=== PATIENT | male | born 1990 | race Caucasian/White ===

== ENCOUNTER → 2017-04-06 | Outpatient (CLI) | payer MEDICAID ==
[~2017-04-06] MED LIST: AUGMENTIN 500 M1 TAB PO; AUGMENTIN 500500 M1 PO; AUGMENTIN 875 M1 TA1 PO; AUGMENTIN 875 M1 TAB PO; AUGMENTIN 875875 MG PO; BACTRIM DS 8001 TA1 PO; BUSPAR5 MG PO; DIFLUCAN100 MG PO; FLEXERIL10 MG PO; FLEXERIL5 MG PO; HYDROCODONE BIT1 T11 PO; IBU-6600 MG PO; MIRAPEX; MOTRIN100 M1 PO; MOTRIN400 MG PO; MOTRIN800 MG PO; MYCOLOG CREAM 115 GM T; NAPROSYN500 MG PO; NICODERM7 MG/24 HR TD; NKHM; NORCO 325 MG-51 TAB PO; PERCOCET 325 MG1 TA5 PO; ROBITUSSIN; ROCEPHIN1 GM IV; TRAMADOL HCL50 MG PO; VIBRAMYCIN100 MG PO; VICODIN 5/500 505 MG PO; ZITHROMAX Z PA250 MG PO; ZOLOFT50 MG PO; ZOSYN 3.373.375 GM/5 IV; ZYRTEC10 M2 PO
[2017-04-06 16:49] LABS: BILIRUBIN NEGATIVE (NEGATIVE); BLOOD 1+ (NEGATIVE); CLARITY CLOUDY (CLEAR); COLOR YELLOW (YELLOW); GLUCOSE NEGATIVE (NEGATIVE); KETONE NEGATIVE (NEGATIVE); LEUKO ESTERASE 1+ (NEGATIVE); NITRITE POSITIVE (NEGATIVE); PH 6.5 (5.0-9.0); UROBILINOGEN 0.2 E.U./dl (0.2-1.0)
[2017-04-06 17:02] LABS: BACTERIA 3+; WBC 41-50 wbc/hpf (0-5)
== END | disposition home or self-care (01) ==
LOC: LAB 16:22
PROVIDERS: Urology
DX: R10.9 Unspecified abdominal pain (principal)

== ENCOUNTER → 2017-04-30 | Outpatient (CLI) | payer MEDICAID | END | disposition home or self-care (01) | LOC: CANPRECLI → WOUNDCARE 12:00 | DX: L89.323 Pressure ulcer of left buttock, stage 3 (principal); F17.210 Nicotine dependence, cigarettes, uncomplicated ==

== ENCOUNTER → 2017-06-30 | Outpatient (CLI) | payer MEDICAID ==
[2017-06-30 17:13] LABS: BILIRUBIN NEGATIVE (NEGATIVE); BLOOD 1+ (NEGATIVE); CLARITY TURBID (CLEAR); COLOR YELLOW (YELLOW); GLUCOSE NEGATIVE (NEGATIVE); KETONE NEGATIVE (NEGATIVE); LEUKO ESTERASE 2+ (NEGATIVE); NITRITE POSITIVE (NEGATIVE); SPECIFIC GRAVITY 1.015 (1.005-1.030); UROBILINOGEN 0.2 E.U./dl (0.2-1.0)
[2017-06-30 17:23] LABS: EPITHELIAL CELLS 0-2; WBC TNTC wbc/hpf (0-5)
[2017-06-30 17:24] LABS: BACTERIA 4+
== END | disposition home or self-care (01) ==
LOC: LAB 16:26
DX: R30.0 Dysuria (principal)

== ENCOUNTER → 2017-11-23 | Outpatient (CLI) | payer MEDICAID | END | disposition home or self-care (01) | LOC: WOUNDCARE 01:55 | DX: L89.323 Pressure ulcer of left buttock, stage 3 (principal); Q05.9 Spina bifida, unspecified; G89.29 Other chronic pain; F17.210 Nicotine dependence, cigarettes, uncomplicated ==

== ENCOUNTER → 2017-12-02 | Outpatient (CLI) | payer MEDICAID | END | disposition home or self-care (01) | LOC: WOUNDCARE 03:48 | DX: L89.323 Pressure ulcer of left buttock, stage 3 (principal); Q05.9 Spina bifida, unspecified; G89.29 Other chronic pain; F17.210 Nicotine dependence, cigarettes, uncomplicated ==

== ENCOUNTER → 2017-12-09 | Outpatient (CLI) | payer MEDICAID | END | disposition home or self-care (01) | LOC: WOUNDCARE 01:26 | DX: L89.323 Pressure ulcer of left buttock, stage 3 (principal); Q05.9 Spina bifida, unspecified; G89.29 Other chronic pain; F17.210 Nicotine dependence, cigarettes, uncomplicated; Z71.6 Tobacco abuse counseling ==

== ENCOUNTER → 2017-12-16 | Outpatient (CLI) | payer MEDICAID | END | disposition home or self-care (01) | LOC: WOUNDCARE 00:49 | DX: L89.323 Pressure ulcer of left buttock, stage 3 (principal); Q05.9 Spina bifida, unspecified; G89.29 Other chronic pain; F17.210 Nicotine dependence, cigarettes, uncomplicated ==

== ENCOUNTER → 2017-12-23 | Outpatient (CLI) | payer MEDICAID | END | disposition home or self-care (01) | LOC: WOUNDCARE 03:05 | DX: L89.323 Pressure ulcer of left buttock, stage 3 (principal); Q05.9 Spina bifida, unspecified; G89.29 Other chronic pain; F17.210 Nicotine dependence, cigarettes, uncomplicated; Z71.6 Tobacco abuse counseling ==

== ENCOUNTER → 2017-12-30 | Outpatient (CLI) | payer MEDICAID | END | disposition home or self-care (01) | LOC: WOUNDCARE 01:27 | DX: L89.323 Pressure ulcer of left buttock, stage 3 (principal); Q05.9 Spina bifida, unspecified; G89.29 Other chronic pain; F17.210 Nicotine dependence, cigarettes, uncomplicated ==

== ENCOUNTER → 2018-01-06 | Outpatient (CLI) | payer MEDICAID | END | disposition home or self-care (01) | LOC: WOUNDCARE 00:30 | DX: L89.323 Pressure ulcer of left buttock, stage 3 (principal); Q05.9 Spina bifida, unspecified; G89.29 Other chronic pain; F17.210 Nicotine dependence, cigarettes, uncomplicated ==

== ENCOUNTER → 2018-01-13 | Outpatient (CLI) | payer MEDICAID | END | disposition home or self-care (01) | LOC: WOUNDCARE 03:42 | DX: L89.323 Pressure ulcer of left buttock, stage 3 (principal); Q05.9 Spina bifida, unspecified; G89.29 Other chronic pain; F17.210 Nicotine dependence, cigarettes, uncomplicated; Z71.6 Tobacco abuse counseling ==

== ENCOUNTER → 2018-01-28 | Outpatient (CLI) | payer MEDICAID ==
[~2018-01-28] MED LIST changes: +ZOFRAN ODT4 MG SL
== END | disposition home or self-care (01) ==
LOC: WOUNDCARE 01-26 09:40
DX: L89.323 Pressure ulcer of left buttock, stage 3 (principal); Q05.9 Spina bifida, unspecified; G89.29 Other chronic pain; F17.210 Nicotine dependence, cigarettes, uncomplicated; Z71.6 Tobacco abuse counseling

== ENCOUNTER → 2018-02-03 | Outpatient (CLI) | payer MEDICAID | END | disposition home or self-care (01) | LOC: WOUNDCARE 08:34 | DX: L89.323 Pressure ulcer of left buttock, stage 3 (principal); Q05.9 Spina bifida, unspecified; G89.29 Other chronic pain; F17.210 Nicotine dependence, cigarettes, uncomplicated; Z71.6 Tobacco abuse counseling ==

== ENCOUNTER → 2018-02-10 | Outpatient (CLI) | payer MEDICAID | END | disposition home or self-care (01) | LOC: WOUNDCARE 02:07 | DX: L89.323 Pressure ulcer of left buttock, stage 3 (principal); Q05.9 Spina bifida, unspecified; G89.29 Other chronic pain; F17.210 Nicotine dependence, cigarettes, uncomplicated; Z71.6 Tobacco abuse counseling ==

== ENCOUNTER → 2018-02-17 | Outpatient (CLI) | payer MEDICAID | END | disposition home or self-care (01) | LOC: WOUNDCARE 03:38 | DX: L89.323 Pressure ulcer of left buttock, stage 3 (principal); Q05.9 Spina bifida, unspecified; G89.29 Other chronic pain; F17.200 Nicotine dependence, unspecified, uncomplicated; Z71.6 Tobacco abuse counseling ==

== ENCOUNTER → 2018-02-24 | Outpatient (CLI) | payer MEDICAID | END | disposition home or self-care (01) | LOC: WOUNDCARE 10:28 | DX: L89.323 Pressure ulcer of left buttock, stage 3 (principal); Q05.9 Spina bifida, unspecified; F17.200 Nicotine dependence, unspecified, uncomplicated; Z71.6 Tobacco abuse counseling; G89.29 Other chronic pain ==

== ENCOUNTER → 2018-03-26 | Outpatient (CLI) | payer MEDICAID | END | disposition home or self-care (01) | LOC: WOUNDCARE 08:52 | DX: L89.323 Pressure ulcer of left buttock, stage 3 (principal); Q05.9 Spina bifida, unspecified; G89.29 Other chronic pain; F17.290 Nicotine dependence, other tobacco product, uncomplicated; Z71.6 Tobacco abuse counseling ==

== ENCOUNTER → 2018-03-31 | Outpatient (CLI) | payer MEDICAID | END | disposition home or self-care (01) | LOC: WOUNDCARE 07:15 | DX: L89.323 Pressure ulcer of left buttock, stage 3 (principal); Q05.9 Spina bifida, unspecified; G89.29 Other chronic pain; F17.290 Nicotine dependence, other tobacco product, uncomplicated; Z71.6 Tobacco abuse counseling ==

== ENCOUNTER → 2018-04-07 | Outpatient (CLI) | payer MEDICAID | END | disposition home or self-care (01) | LOC: WOUNDCARE 04:18 | DX: L89.323 Pressure ulcer of left buttock, stage 3 (principal); Q05.9 Spina bifida, unspecified; G89.29 Other chronic pain; F17.290 Nicotine dependence, other tobacco product, uncomplicated; Z71.6 Tobacco abuse counseling ==

== ENCOUNTER → 2018-04-08 | Outpatient (CLI) | payer MEDICAID ==
[2018-04-08 14:04] LABS: BUN 15 mg/dl (7-24); CHLORIDE 107 mmol/L (98-107); CREATININE 0.68 mg/dL (0.70-1.30); POTASSIUM 3.6 mmol/L (3.5-5.1); SODIUM 139 mmol/L (136-145)
== END | disposition home or self-care (01) ==
LOC: LAB 12:58 → CT 14:00
PROVIDERS: Family Medicine
DX: S06.0X0A Concussion without loss of consciousness, initial encounter (principal); Q05.2 Lumbar spina bifida with hydrocephalus; R42 Dizziness and giddiness; X58.XXXA Exposure to other specified factors, initial encounter; Y93.89 Activity, other specified; Y92.89 Other specified places as the place of occurrence of the external cause; Y99.8 Other external cause status

== ENCOUNTER → 2018-04-14 | Outpatient (CLI) | payer MEDICAID | END | disposition home or self-care (01) | LOC: WOUNDCARE 00:41 | DX: L89.323 Pressure ulcer of left buttock, stage 3 (principal); Q05.9 Spina bifida, unspecified; G89.29 Other chronic pain; F17.290 Nicotine dependence, other tobacco product, uncomplicated ==

== ENCOUNTER → 2018-04-28 | Outpatient (CLI) | payer MEDICAID | END | disposition home or self-care (01) | LOC: WOUNDCARE 01:21 | DX: L89.323 Pressure ulcer of left buttock, stage 3 (principal); G89.29 Other chronic pain; Q05.9 Spina bifida, unspecified; F17.290 Nicotine dependence, other tobacco product, uncomplicated; Z71.6 Tobacco abuse counseling ==

== ENCOUNTER → 2018-05-05 | Outpatient (CLI) | payer MEDICAID | END | disposition home or self-care (01) | LOC: WOUNDCARE 01:31 | DX: L89.323 Pressure ulcer of left buttock, stage 3 (principal); G89.29 Other chronic pain; R21 Rash and other nonspecific skin eruption; Q05.9 Spina bifida, unspecified; F17.290 Nicotine dependence, other tobacco product, uncomplicated; Z71.6 Tobacco abuse counseling ==

== ENCOUNTER → 2018-05-12 | Outpatient (CLI) | payer MEDICAID | END | disposition home or self-care (01) | LOC: WOUNDCARE 04:27 | DX: L89.323 Pressure ulcer of left buttock, stage 3 (principal); Q05.9 Spina bifida, unspecified; R21 Rash and other nonspecific skin eruption; G89.29 Other chronic pain; F17.290 Nicotine dependence, other tobacco product, uncomplicated; Z71.6 Tobacco abuse counseling ==

== ENCOUNTER → 2018-05-26 | Outpatient (CLI) | payer MEDICAID | END | disposition home or self-care (01) | LOC: WOUNDCARE 04:33 | DX: L89.323 Pressure ulcer of left buttock, stage 3 (principal); Q05.9 Spina bifida, unspecified; G89.29 Other chronic pain; F17.290 Nicotine dependence, other tobacco product, uncomplicated; Z71.6 Tobacco abuse counseling ==

== ENCOUNTER → 2018-06-02 | Outpatient (CLI) | payer MEDICAID | END | disposition home or self-care (01) | LOC: WOUNDCARE 01:51 | DX: L89.323 Pressure ulcer of left buttock, stage 3 (principal); Q05.9 Spina bifida, unspecified; G89.29 Other chronic pain; F17.290 Nicotine dependence, other tobacco product, uncomplicated ==

== ENCOUNTER → 2018-06-16 | Outpatient (CLI) | payer MEDICAID | LOC: WOUNDCARE 02:58 | DX: L89.323 Pressure ulcer of left buttock, stage 3 (principal); Q05.9 Spina bifida, unspecified; G89.29 Other chronic pain; F17.200 Nicotine dependence, unspecified, uncomplicated; Z71.6 Tobacco abuse counseling ==

== ENCOUNTER → 2018-06-23 | Outpatient (CLI) | payer MEDICAID | END | disposition home or self-care (01) | LOC: WOUNDCARE 04:46 | DX: L89.323 Pressure ulcer of left buttock, stage 3 (principal); Q05.9 Spina bifida, unspecified; G89.29 Other chronic pain; F17.290 Nicotine dependence, other tobacco product, uncomplicated; Z71.6 Tobacco abuse counseling ==

== ENCOUNTER → 2018-06-30 | Outpatient (CLI) | payer MEDICAID | END | disposition home or self-care (01) | LOC: WOUNDCARE 02:23 | DX: L89.323 Pressure ulcer of left buttock, stage 3 (principal); Q05.9 Spina bifida, unspecified; G89.29 Other chronic pain; F17.290 Nicotine dependence, other tobacco product, uncomplicated; Z71.6 Tobacco abuse counseling ==

== ENCOUNTER → 2018-07-07 | Outpatient (CLI) | payer MEDICAID | END | disposition home or self-care (01) | LOC: WOUNDCARE 02:32 | DX: L89.323 Pressure ulcer of left buttock, stage 3 (principal); Q05.9 Spina bifida, unspecified; G89.29 Other chronic pain; F17.290 Nicotine dependence, other tobacco product, uncomplicated; Z71.6 Tobacco abuse counseling ==

== ENCOUNTER → 2018-07-14 | Outpatient (CLI) | payer MEDICAID | END | disposition home or self-care (01) | LOC: WOUNDCARE 02:22 | DX: L89.323 Pressure ulcer of left buttock, stage 3 (principal); Q05.9 Spina bifida, unspecified; G89.29 Other chronic pain; F17.290 Nicotine dependence, other tobacco product, uncomplicated; Z71.6 Tobacco abuse counseling ==

== ENCOUNTER → 2018-07-23 | Outpatient (CLI) | payer MEDICAID | END | disposition home or self-care (01) | LOC: WOUNDCARE 04:03 | DX: L89.323 Pressure ulcer of left buttock, stage 3 (principal); Q05.9 Spina bifida, unspecified; G89.29 Other chronic pain; F17.290 Nicotine dependence, other tobacco product, uncomplicated; Z71.6 Tobacco abuse counseling ==

== ENCOUNTER → 2018-07-28 | Outpatient (CLI) | payer MEDICAID | END | disposition home or self-care (01) | LOC: WOUNDCARE 01:49 | DX: L89.323 Pressure ulcer of left buttock, stage 3 (principal); Q05.9 Spina bifida, unspecified; G89.29 Other chronic pain; F17.290 Nicotine dependence, other tobacco product, uncomplicated ==

== ENCOUNTER → 2018-08-18 | Outpatient (CLI) | payer MEDICAID | END | disposition home or self-care (01) | LOC: WOUNDCARE 02:58 | DX: L89.323 Pressure ulcer of left buttock, stage 3 (principal); Q05.9 Spina bifida, unspecified; R21 Rash and other nonspecific skin eruption; G89.29 Other chronic pain; F17.290 Nicotine dependence, other tobacco product, uncomplicated; Z71.6 Tobacco abuse counseling ==

== ENCOUNTER → 2018-09-08 | Outpatient (CLI) | payer MEDICAID | END | disposition home or self-care (01) | LOC: WOUNDCARE 02:10 | DX: L89.323 Pressure ulcer of left buttock, stage 3 (principal); Q05.9 Spina bifida, unspecified; R21 Rash and other nonspecific skin eruption; G89.29 Other chronic pain; F17.290 Nicotine dependence, other tobacco product, uncomplicated; Z71.6 Tobacco abuse counseling ==

== ENCOUNTER → 2018-10-20 | Outpatient (CLI) | payer MEDICAID | END | disposition home or self-care (01) | LOC: WOUNDCARE 01:25 | DX: L89.323 Pressure ulcer of left buttock, stage 3 (principal); Q05.9 Spina bifida, unspecified; G89.29 Other chronic pain; F17.290 Nicotine dependence, other tobacco product, uncomplicated; Z71.6 Tobacco abuse counseling ==

== ENCOUNTER → 2018-10-27 | Outpatient (CLI) | payer MEDICAID | END | disposition home or self-care (01) | LOC: WOUNDCARE 02:20 | DX: L89.323 Pressure ulcer of left buttock, stage 3 (principal); Q05.9 Spina bifida, unspecified; R21 Rash and other nonspecific skin eruption; G89.29 Other chronic pain; F17.290 Nicotine dependence, other tobacco product, uncomplicated; Z71.6 Tobacco abuse counseling ==

== ENCOUNTER → 2018-11-03 | Outpatient (CLI) | payer MEDICAID | END | disposition home or self-care (01) | LOC: WOUNDCARE 02:45 | DX: L89.323 Pressure ulcer of left buttock, stage 3 (principal); Q05.9 Spina bifida, unspecified; R21 Rash and other nonspecific skin eruption; G89.29 Other chronic pain; F17.290 Nicotine dependence, other tobacco product, uncomplicated; Z71.6 Tobacco abuse counseling ==

== ENCOUNTER → 2018-11-10 | Outpatient (CLI) | payer MEDICAID | END | disposition home or self-care (01) | LOC: WOUNDCARE 03:06 | DX: L89.323 Pressure ulcer of left buttock, stage 3 (principal); Q05.9 Spina bifida, unspecified; R21 Rash and other nonspecific skin eruption; G89.29 Other chronic pain; F17.290 Nicotine dependence, other tobacco product, uncomplicated; Z71.6 Tobacco abuse counseling ==

== ENCOUNTER → 2018-11-18 | Outpatient (CLI) | payer MEDICAID ==
[2018-11-18 14:58] LABS: BILIRUBIN NEGATIVE (NEGATIVE); BLOOD TRACE-INTACT (NEGATIVE); CLARITY TURBID (CLEAR); COLOR YELLOW (YELLOW); GLUCOSE NEGATIVE (NEGATIVE); KETONE NEGATIVE (NEGATIVE); LEUKO ESTERASE 2+ (NEGATIVE); NITRITE POSITIVE (NEGATIVE); SPECIFIC GRAVITY 1.015 (1.005-1.030)
[2018-11-18 16:50] LABS: BACTERIA 4+; WBC 21-30 wbc/hpf (0-5)
[2018-11-18 16:51] LABS: MUCOUS 3+
== END | disposition home or self-care (01) ==
LOC: LAB 01:25
PROVIDERS: Clinical Nurse Specialist Pediatrics
DX: M25.512 Pain in left shoulder (principal); R39.9 Unspecified symptoms and signs involving the genitourinary system

== ENCOUNTER → 2018-11-24 | Outpatient (CLI) | payer MEDICAID | END | disposition home or self-care (01) | LOC: WOUNDCARE 01:23 → EDSTATUS 15:58 | DX: L89.323 Pressure ulcer of left buttock, stage 3 (principal); Q05.9 Spina bifida, unspecified; R21 Rash and other nonspecific skin eruption; G89.29 Other chronic pain; F17.290 Nicotine dependence, other tobacco product, uncomplicated; Z71.6 Tobacco abuse counseling ==

== ENCOUNTER → 2018-12-01 | Outpatient (CLI) | payer MEDICAID | END | disposition home or self-care (01) | LOC: WOUNDCARE 01:20 | DX: L89.323 Pressure ulcer of left buttock, stage 3 (principal); Q05.9 Spina bifida, unspecified; R21 Rash and other nonspecific skin eruption; G89.29 Other chronic pain; F17.290 Nicotine dependence, other tobacco product, uncomplicated ==

== ENCOUNTER → 2018-12-08 | Outpatient (CLI) | payer MEDICAID | END | disposition home or self-care (01) | LOC: WOUNDCARE 13:57 | DX: L89.323 Pressure ulcer of left buttock, stage 3 (principal); R21 Rash and other nonspecific skin eruption; Q05.9 Spina bifida, unspecified; G89.29 Other chronic pain; F17.290 Nicotine dependence, other tobacco product, uncomplicated; Z71.6 Tobacco abuse counseling ==

== ENCOUNTER → 2018-12-15 | Outpatient (CLI) | payer MEDICAID | END | disposition home or self-care (01) | LOC: WOUNDCARE 01:21 | DX: L89.323 Pressure ulcer of left buttock, stage 3 (principal); Q05.9 Spina bifida, unspecified; R21 Rash and other nonspecific skin eruption; G89.29 Other chronic pain; F17.290 Nicotine dependence, other tobacco product, uncomplicated ==

== ENCOUNTER → 2018-12-29 | Outpatient (CLI) | payer MEDICAID | END | disposition home or self-care (01) | LOC: WOUNDCARE 02:01 | DX: L89.323 Pressure ulcer of left buttock, stage 3 (principal); Q05.9 Spina bifida, unspecified; R21 Rash and other nonspecific skin eruption; G89.29 Other chronic pain; F17.290 Nicotine dependence, other tobacco product, uncomplicated ==

== ENCOUNTER → 2019-01-12 | Outpatient (CLI) | payer MEDICAID | END | disposition home or self-care (01) | LOC: WOUNDCARE 02:12 | DX: L89.323 Pressure ulcer of left buttock, stage 3 (principal); Q05.9 Spina bifida, unspecified; R21 Rash and other nonspecific skin eruption; G89.29 Other chronic pain; F17.290 Nicotine dependence, other tobacco product, uncomplicated; Z71.6 Tobacco abuse counseling ==

== ENCOUNTER → 2019-06-10 | Outpatient (CLI) | payer MEDICAID ==
[2019-06-10 10:28] LABS: BASO % 0.4 % (0.0-1.0); EOS # 0.2 10*3/uL (0.0-0.4); EOS % 2.3 % (1.0-4.0); HEMATOCRIT 47.3 % (42.0-52.0); HEMOGLOBIN 15.9 g/dl (14.0-18.0); LYMPH # 3.2 10*3/uL (1.3-4.4); LYMPH % 34.8 % (27.0-41.0); MEAN CELL VOLUME 88.4 fl (80.0-94.0); MEAN CORPUSCULAR HGB 29.7 pg (27.0-31.0); MEAN CORPUSCULAR HGB CONC 33.6 g/dl (33.0-37.0); MEAN PLATELET VOLUME 10.1 fl (9.6-12.3); MONO # 0.7 10*3/uL (0.1-1.0); MONO % 7.8 % (3.0-9.0); NEUT # 5.1 10*3/uL (2.3-7.9); NEUT % 54.4 % (47.0-73.0); PLATELET COUNT AUTOMATED 249 10*3/uL (130-400); RED BLOOD COUNT 5.35 10*6/uL (4.50-5.90); RED CELL DISTRI WIDTH 13.2 % (0-14.5); WHITE BLOOD COUNT 9.3 10*3/uL (4.8-10.8)
[2019-06-10 10:48] LABS: ALBUMIN 3.8 gm/dl (3.1-4.5); ALKALINE PHOSPHATASE 69 U/L (45-117); BUN 18 mg/dl (7-24); CHLORIDE 106 mmol/L (98-107); CREATININE 0.79 mg/dL (0.70-1.30); POTASSIUM 3.8 mmol/L (3.5-5.1); SGOT/AST 14 IU/L (3-35); SGPT/ALT 30 U/L (12-78); SODIUM 138 mmol/L (136-145); T3 UPTAKE 34 % (31-39); TOTAL PROTEIN 7.4 gm/dL (6.4-8.2)
[2019-06-10 10:55] LABS: THYROXINE (T4) TOTAL 11.5 ug/dl (4.5-12.1)
[2019-06-11 08:09] LABS: FOLLICLE STIMULATING HORMONE 3.1 mIU/mL (1.5-12.4); LUTEINIZING HORMONE 004283 4.2 mIU/mL (1.7-8.6); PROGESTERONE 004317 0.1 ng/mL (0.0-0.5); PROLACTIN 004465 10.5 ng/mL (4.0-15.2)
== END | disposition home or self-care (01) ==
LOC: LAB 09:39
PROVIDERS: Nurse Practitioner Family
DX: R53.83 Other fatigue (principal); Q05.9 Spina bifida, unspecified

== ENCOUNTER → 2019-06-29 | Outpatient (CLI) | payer MEDICAID ==
[2019-06-29 15:17] LABS: THYROXINE (T4) TOTAL 11.9 ug/dl (4.5-12.1)
== END | disposition home or self-care (01) ==
LOC: LAB 13:30
PROVIDERS: Nurse Practitioner Family
DX: N20.0 Calculus of kidney (principal)

== ENCOUNTER → 2019-06-30 | Outpatient (CLI) | payer MEDICAID ==
[2019-07-12 18:53] LABS: BUSHITE 3.72 ratio (0.00-3.00); CALCIUM OXALATE 7.18 ratio (0.00-6.00); CALCIUM, URINE 13.6 mg/dL (Not Estab.); CALCIUM, URINE 244.8 mg/24 hr (100.0-300.0); CITRIC ACID (CITRATE) 355 mg/24 hr (320-1240); MAGNESIUM, URINE 13.4 mg/dL (Not Estab.); MONOSODIUM URATE 6.76 ratio (0.00-4.00); OSMOLALITY, URINE 613 (300-900); SODIUM, URINE 129 mmol/L (Not Estab.); SODIUM, URINE 232 (58-337); STRUVITE 0.23 ratio (0.00-1.00); URIC ACID 1.06 ratio (0.00-1.20); pH 24 HR URINE 6.3 (.)
== END | disposition home or self-care (01) ==
LOC: LAB 09:00
PROVIDERS: Nurse Practitioner Family
DX: N20.0 Calculus of kidney (principal)

== ENCOUNTER → 2019-07-01 | Outpatient (CLI) | payer MEDICAID ==
[2019-07-01 10:41] LABS: BILIRUBIN NEGATIVE (NEGATIVE); BLOOD TRACE-LYSED (NEGATIVE); CLARITY SL CLOUDY (CLEAR); COLOR YELLOW (YELLOW); GLUCOSE NEGATIVE (NEGATIVE); KETONE NEGATIVE (NEGATIVE); LEUKO ESTERASE 2+ (NEGATIVE); NITRITE POSITIVE (NEGATIVE); SPECIFIC GRAVITY 1.025 (1.005-1.030); UROBILINOGEN 0.2 E.U./dl (0.2-1.0)
[2019-07-01 11:00] LABS: BACTERIA TRACE; RBC 0-2 rbc/hpf (0-2); WBC 16-20 wbc/hpf (0-5)
== END | disposition home or self-care (01) ==
LOC: LAB 10:06
PROVIDERS: Nurse Practitioner Family
DX: N20.0 Calculus of kidney (principal)

== ENCOUNTER → 2019-09-07 | Outpatient (CLI) | payer MEDICAID ==
[2019-09-07 16:41] LABS: BILIRUBIN NEGATIVE (NEGATIVE); BLOOD 2+ (NEGATIVE); CLARITY CLOUDY (CLEAR); COLOR YELLOW (YELLOW); GLUCOSE NEGATIVE (NEGATIVE); KETONE NEGATIVE (NEGATIVE); LEUKO ESTERASE TRACE (NEGATIVE); NITRITE NEGATIVE (NEGATIVE); UROBILINOGEN 0.2 E.U./dl (0.2-1.0)
[2019-09-07 16:42] LABS: BACTERIA 2+; MUCOUS 4+; RBC 0-2 rbc/hpf (0-2); WBC 41-50 wbc/hpf (0-5)
== END | disposition home or self-care (01) ==
LOC: LAB 15:33
PROVIDERS: Family Medicine
DX: N17.9 Acute kidney failure, unspecified (principal); N20.0 Calculus of kidney

== ENCOUNTER 2019-10-06 20:07 | Inpatient (IN) | payer MEDICAID ==
[~2019-10-06] VITALS: Ht 144.8 cm; Wt 80.9 kg
[2019-10-06 20:13] VITALS: BP 138/78
--- NOTE | 2019-10-06 20:54 | NUR ---
PT PROMPTED FOR URINE SPECIMEN.PT STATES HE BROUGHT HIS STRAIGHT CATH MATERIALS.PT PROVIDED BEDSIDE URINAL.
[2019-10-06 21:03] LABS: BASO # 0.1 10*3/uL (0.0-0.1); BASO % 0.4 % (0.0-1.0); EOS # 0.3 10*3/uL (0.0-0.4); EOS % 1.9 % (1.0-4.0); HEMATOCRIT 48.4 % (42.0-52.0); HEMOGLOBIN 16.3 g/dl (14.0-18.0); LYMPH # 4.1 10*3/uL (1.3-4.4); LYMPH % 30.4 % (27.0-41.0); MEAN CELL VOLUME 86.7 fl (80.0-94.0); MEAN CORPUSCULAR HGB 29.2 pg (27.0-31.0); MEAN CORPUSCULAR HGB CONC 33.7 g/dl (33.0-37.0); MONO % 7.1 % (3.0-9.0); NEUT # 8.1 10*3/uL (2.3-7.9); NEUT % 59.8 % (47.0-73.0); PLATELET COUNT AUTOMATED 281 10*3/uL (130-400); RED BLOOD COUNT 5.58 10*6/uL (4.50-5.90); RED CELL DISTRI WIDTH 12.8 % (0-14.5); WHITE BLOOD COUNT 13.6 10*3/uL (4.8-10.8)
[2019-10-06 21:19] LABS: ALKALINE PHOSPHATASE 88 U/L (45-117); BUN 13 mg/dl (7-24); CHLORIDE 109 mmol/L (98-107); CREATININE 0.89 mg/dL (0.70-1.30); LIPASE 101 U/L (73-393); POTASSIUM 3.5 mmol/L (3.5-5.1); SGOT/AST 15 IU/L (3-35); SGPT/ALT 36 U/L (12-78); SODIUM 138 mmol/L (136-145); TOTAL PROTEIN 7.8 gm/dL (6.4-8.2)
--- NOTE | 2019-10-06 21:42 | NUR ---
PT REPORTS HE FEELS BETTER AFTER MEDICATION OF ZOFRAN AND ATIVAN.FLUIDS CONTINUE TO INFUSE.
[2019-10-06 21:57] LABS: BILIRUBIN NEGATIVE (NEGATIVE); BLOOD 3+ (NEGATIVE); CLARITY CLOUDY (CLEAR); COLOR YELLOW (YELLOW); GLUCOSE NEGATIVE (NEGATIVE); KETONE NEGATIVE (NEGATIVE); LEUKO ESTERASE 2+ (NEGATIVE); NITRITE POSITIVE (NEGATIVE); PH 6.5 (5.0-9.0); UROBILINOGEN 0.2 E.U./dl (0.2-1.0)
[2019-10-06 22:06] LABS: BACTERIA 1+; MUCOUS 4+
--- NOTE | 2019-10-06 22:26 | NUR ---
MONICA ESCOBAR AT BEDSIDE TO UPDATE PT ON PLAN OF CARE.
--- NOTE | 2019-10-06 22:27 | NUR ---
PT TO CT VIA STRETCHER AT THIS TIME.
[2019-10-06 23:26] VITALS: BP 117/74
--- NOTE | 2019-10-06 23:44 | NUR ---
PER PUBLIC SAFETY DIRECTOR LUZ PT PROVIDED BOXED SANDWICH MEAL.
--- NOTE | 2019-10-06 23:59 | NUR ---
RESIDENT AT BEDSIDE.
--- NOTE | 2019-10-07 00:14 | NUR ---
PT MOTHER ASSISTED IN PHOTO OF HEALING WOUND ON LEFT BUTTOCK.
[2019-10-07 00:30] VITALS: BP 128/68
--- NOTE | 2019-10-07 00:30 | NUR ---
Time: 29 A 29 year old MALE admitted to 5E under services of CRISTINO TONEY DO. Pt. arrived via stretcher from ER. Chief complaint: NAUSEA & VOMITING. SVETLANA MARSHALL
[2019-10-07] MEDS ORDERED: LORAZEPAM0.5 MG PO (00:41)
--- NOTE | 2019-10-07 01:40 | NUR ---
DR MAURICE CALLED.HOME MEDS UP TO DATE. PATIENT REQUESTING NICOTINE GUM.
--- NOTE | 2019-10-07 05:32 | NUR ---
CHANELLE SALINAS [id number] Please refer to the physician's history and physical for past medical history, comorbid conditions, and allergies. Diagnosis: UTI SEPSIS Leroy Score: 14,MODERATE RISK WOUND DESCRIPTIONS: Wound Number: 1 Location of the wound: Left buttocks Type of wound: scar tissue Size: 1.0cm x 1.5cm x <0.1cm Tunneling: none Undermining: none Sinus Tract: none Presence of Exudate: none Amount: None Color: Gibson Odor: None Periwound Skin Appearance: Scar Wound edges: closed Pain (associated with wound): none at time of assessment How does patient state this happened? pt stated this has been on and off since the 8th grade Surface the patient is resting on: Isoflex SKIN PREVENTION RECOMMENDATION: 1. Pressure redistribution support surface as appropriate 2. Elevate heels 3. Remove boots/TEDS every shift and reapply 4. Head of bed 30 degrees as tolerated 5. Assess nutrition and hydration 6. Manage moisture 7. Avoid the use of containment devices while in bed 8. Use absorptive products on surfaces limit layers of linens on bed 9. Turn and reposition every 1-2 hours in bed and every 1 hour in chair as tolerated 10. Weight shifts every 15 minutes while up in chair 11. Offloading with pillows or device to keep heels elevated off bed 12. Monitor skin at least every shift 13. Inspect under medical devices twice a day WOUND TREATMENT RECOMMENDATIONS: Wheelchair cushion when oob Heel raiser pro boots to bilateral feet while in bed Cleanse left buttocks with nss and apply hydraguard every shift and prn for soiling. Patient states he will continue to follow up care when he is discharged since this is ongoing comes and goes.
--- NOTE | 2019-10-07 06:48 | NUR ---
NEW CONSULT CALLED TO DR DAVIDSON'S ANSWERING SERVICE.
[2019-10-07 08:00] VITALS: BP 114/73
--- NOTE | 2019-10-07 08:24 | NUR ---
CALLED DR DUNCAN PER PT REQUEST OF WANTING TO EITHER BE STRAIGHT CATH OR HAVE A GODOY INSERTED BECAUSE HE IS TOO WEAK TO STRAIGHT CATH HIMSELF, DR DUNCAN STATES TO JUST STRAIGHT CATH HIM AT THIS TIME.
--- NOTE | 2019-10-07 08:30 | NUR ---
Dr. Duvall notified of wound care recommendations.
[2019-10-07 08:52] LABS: BASO # 0.1 10*3/uL (0.0-0.1); BASO % 0.4 % (0.0-1.0); EOS # 0.3 10*3/uL (0.0-0.4); EOS % 2.7 % (1.0-4.0); HEMATOCRIT 41.3 % (42.0-52.0); HEMOGLOBIN 13.6 g/dl (14.0-18.0); LYMPH % 35.4 % (27.0-41.0); MEAN CELL VOLUME 89.4 fl (80.0-94.0); MEAN CORPUSCULAR HGB 29.4 pg (27.0-31.0); MEAN CORPUSCULAR HGB CONC 32.9 g/dl (33.0-37.0); MONO # 1.1 10*3/uL (0.1-1.0); MONO % 9.3 % (3.0-9.0); NEUT # 5.9 10*3/uL (2.3-7.9); NEUT % 51.8 % (47.0-73.0); PLATELET COUNT AUTOMATED 236 10*3/uL (130-400); RED BLOOD COUNT 4.62 10*6/uL (4.50-5.90); RED CELL DISTRI WIDTH 13.2 % (0-14.5); WHITE BLOOD COUNT 11.4 10*3/uL (4.8-10.8)
--- NOTE | 2019-10-07 08:58 | NUR ---
DR DUNCAN ON FLOOR AND ASKED HIM IF WE CAN PUT A ORDER IN FOR PRN STRAIGHT CATH. HE STATES HE WILL GO INTO THE ROOM AND TALK TO THE PATIENT AND MOTHER
--- NOTE | 2019-10-07 09:00 | NUR ---
Patient is not available as he is with nursing for wound care. Jyoti Gerard OTr/l
--- NOTE | 2019-10-07 09:00 | NUR ---
Iron Worker in to talk to patient. Patient states lives at home with his mother. There are 0 steps in the home. Physician: Dr. Rani Singh Pharmacy: [facility] health services: wants [facility] RN/PT/OT up in discharge, has [place] waiver services Patient's level of ADLs: MINIMAL ASSIST Patient has working utilities: yes DME: wheelchair Follow-up physician's appointment after d/c: will be made by the hospitalist nurse director upon discharge Does patient want to access PORTAL?: no Discharge plan discussed with patient and his mother who is sitting at the bedside. He lives at home with his mother. He spends most of his time in a chair recliner. He needs minimal assistance with his ADLs and gets around in a wheelchair. Discussed home health care services and his mother is his home health director critical care through [place] waiver services. Mother would like a longer lower toilet for him. She explained that he needs a PT eval at home. Discussed home health care services for nursing and therapy and she is agreeable. When provided with a list of agencies she chose [facility]. When medically stable he will be discharged to home with home health care services. His mother will provide transportation on discharge . ADONAY CHAND
[2019-10-07 09:02] LABS: ACT PARTIAL THROMBO TIME 29.1 SECONDS (20.0-32.1); INTERNATIONAL NORM RATIO 0.9 (2.0-3.5)
[2019-10-07 09:17] LABS: ALBUMIN 3.2 gm/dl (3.1-4.5); ALKALINE PHOSPHATASE 65 U/L (45-117); BUN 14 mg/dl (7-24); CHLORIDE 113 mmol/L (98-107); CHOLESTEROL 155 mg/dL (<200); CREATININE 0.69 mg/dL (0.70-1.30); HDL CHOLESTEROL 31 mg/dl (40-60); LDL CHOLESTEROL 84 mg/dL (9-159); POTASSIUM 4.1 mmol/L (3.5-5.1); SGOT/AST 13 IU/L (3-35); SGPT/ALT 33 U/L (12-78); SODIUM 141 mmol/L (136-145); TOTAL PROTEIN 6.2 gm/dL (6.4-8.2); TRIGLYCERIDES 202 mg/dl (<150); VLDL CHOLESTEROL 40 mg/dL (6-40)
--- NOTE | 2019-10-07 10:30 | NUR ---
PT REQUESTING ATIVAN AT THIS TIME TO BE ABLE TO RELAX, ATIVAN PRN PO GIVEN AT THIS TIME.
--- NOTE | 2019-10-07 10:30 | NUR ---
PT REFUSING HEEL PROTECTORS AND WOULD RATHER HAVE PILLOW UNDER BOTH FEET
--- NOTE | 2019-10-07 10:32 | NUR ---
PT STATES HE DOES NOT WANT THE HEEL PROTECTORS ON, HE WOULD RATHER HAVE PILLOWS UNDER HIS LEGS
--- NOTE | 2019-10-07 11:10 | NUR ---
Occupational Therapy evaluation completed on 5 with full evaluation to follow. Recommend patient use gripper socks for transfers with supervision d/t unfamiliar hospital environment and loose w/c brakes and potential for fall risk. No further OT indicated at this time. Recommend return home with mother at w/c ht upon d/c. Thank you for this referral. Madeleine Gerard OTR/L
--- NOTE | 2019-10-07 12:00 | NUR ---
PT IN WHEELCHAIR DOING LAPS IN THE [place]. I TOLD HIM WHEN HE IS BACK IN HIS ROOM TO CALL SO THAT I CAN HOOK HIM BACK UP TO HIS FLUIDS
--- NOTE | 2019-10-07 12:44 | NUR ---
PHYSICAL THERAPY Pt was seen today for evaluation while on 5th floor. He was admitted with UTI and sepsis and states he was very ill upon admit. Currently pt is "feeling better" and is anxious to return home to prior level of function. Pt demonstrates modified independence with all aspects of bed mobility and surface to surface transfers to custom wheelchair. He is modified independent with wheelchair mobility and has returned to prior level of function. No further PT at this time and no recommendations upon discharge. Thank you for this referral. Batsheva Valdivia, PT
--- NOTE | 2019-10-07 13:33 | NUR ---
PT BACK IN ROOM A THIS TIME AND PLACED INTO BED. HOOKED TO FLUIDS AND ANTIBIOTIC. LUNCH IS ORDERED. PT DOES NOT NEED ANYTHING ELSE AT THIS TIME. CALL LIGHT WITHIN REACH, WILL CONTINUE TO MONITOR
--- NOTE | 2019-10-07 14:57 | NUR ---
Occupational Therapy evaluation completed on 5 with full evaluation to follow. Recommend no further occupational therapy at this time. Patient is independent in transfers to w/c and w/c mobility and self care after set up.Recommend return home upon discharge with mother. Thank you for this referral. Jyoti Gerard OTr/l
[2019-10-07 16:00] VITALS: BP 131/73
[2019-10-07 20:00] VITALS: BP 122/69
--- NOTE | 2019-10-07 20:01 | NUR ---
PATIENT IS AAOX3 RESTING IN BED WATCHING TV WITH EASY AND REGULAR RESPERS ON ROOM AIR. ASSESSMENT IS COMPLETE WITH NO S/S OF DISTRESS NOTED AT THIS TIME. PATIENT C/O NAUSEA AND PRN ZOFRAN PROVIDED. ABLE TO SCAN MEDICATION BUT NOT PATIENT WRISTBAND D/T SCANNER NOT WORKING. BED IS LOW, LOCKED, AND CALL LIGHT IS WITHIN REACH. SEE SHIFT ASSESSMENT.
--- NOTE | 2019-10-07 20:19 | NUR ---
PATIENT STRAIGHT CATHED SELF. 200ML CLEAR, YELLOW, MUCOUSY URINE. CALL LIGHT IS WITHIN REACH.
--- NOTE | 2019-10-07 20:35 | NUR ---
PATIENT HAD SMALL MUCOUSY EMESIS WITH SCANT AMOUNT OF SOLID MATTER.
--- NOTE | 2019-10-07 21:38 | NUR ---
PATIENT STILL C/O NAUSEA AFTER PRN ZOFRAN. CONTACTED DR. LEONARDO AND REGARDS 12.5MG OF PHENERGAN ORDERED AT THIS TIME.
[2019-10-08] VITALS: BP 142/56
[2019-10-08 08:00] VITALS: BP 111/73
[2019-10-08] MEDS ORDERED: AUGMENTIN 875875 MG PO ×2 (10:17→10:20)
--- NOTE | 2019-10-08 10:22 | NUR ---
DR JOSEPH ROUNDED AND SEEN PT. PER DR JOSEPH PT IS CLEARED FOR D/C.PT TO GO HOME ON [place]MENTIN.PRESCRIPTION SENT TO PREFERRED PHARMACY PER DR JOSEHP.
[2019-10-08] MEDS ORDERED: VITAMIN D35000 UNIT PO (10:35)
[2019-10-08] MEDS ORDERED: ZOFRAN4 MG PO (10:35)
--- NOTE | 2019-10-08 11:50 | NUR ---
Discharge instructions reviewed with patient/family. Patient receptive and verbalizes understanding. Follow-up care arranged. Written instructions given to patient/family. SANTHOSH MURRAY
--- NOTE | 2019-10-10 09:05 | NUR ---
Faxed new home health order to [facility]
== END 2019-10-08 11:50 | disposition home or self-care (01) | DRG 720 ==
LOC: ED 20:07 → EDHOLD 23:28 → 5E 23:28
PROVIDERS: Hospitalist; Nurse Practitioner Family; ADMIT Family Medicine
DX: A41.9 Sepsis, unspecified organism (principal); N20.0 Calculus of kidney; K59.2 Neurogenic bowel, not elsewhere classified; G82.20 Paraplegia, unspecified; N31.9 Neuromuscular dysfunction of bladder, unspecified; N30.01 Acute cystitis with hematuria; B96.89 Other specified bacterial agents as the cause of diseases classified elsewhere; F17.210 Nicotine dependence, cigarettes, uncomplicated; Z88.1 Allergy status to other antibiotic agents; Z88.8 Allergy status to other drugs, medicaments and biological substances; Z79.899 Other long term (current) drug therapy; Z71.6 Tobacco abuse counseling; Q05.4 Unspecified spina bifida with hydrocephalus

== ENCOUNTER → 2020-08-02 | Outpatient (CLI) | payer MEDICAID ==
[~2020-08-02] MED LIST changes: +LORAZEPAM0.5 MG PO; +VITAMIN D35000 UNIT PO; +ZOFRAN4 MG PO
== END | disposition home or self-care (01) ==
LOC: WOUNDCARE 01:01
PROVIDERS: ATTEND Nurse Practitioner
DX: L89.323 Pressure ulcer of left buttock, stage 3 (principal); Q05.9 Spina bifida, unspecified; G89.29 Other chronic pain; F41.9 Anxiety disorder, unspecified; F17.290 Nicotine dependence, other tobacco product, uncomplicated; Z92.0 Personal history of contraception

== ENCOUNTER → 2020-08-09 | Outpatient (CLI) | payer MEDICAID ==
[~2020-08-09] MED LIST changes: +EPIPEN 2-P0.3 MG/0.3 IJ; +MEDROL DOSEPAK4 MG PO; +PREDNISONE10 MG PO
== END | disposition home or self-care (01) ==
LOC: WOUNDCARE 01:54
PROVIDERS: ATTEND Nurse Practitioner
DX: L89.323 Pressure ulcer of left buttock, stage 3 (principal); Q05.9 Spina bifida, unspecified; G89.29 Other chronic pain; F41.9 Anxiety disorder, unspecified; F17.290 Nicotine dependence, other tobacco product, uncomplicated; Z92.0 Personal history of contraception

== ENCOUNTER → 2020-08-30 | Outpatient (CLI) | payer MEDICAID | LOC: WOUNDCARE 01:45 | PROVIDERS: ATTEND Nurse Practitioner | DX: L89.323 Pressure ulcer of left buttock, stage 3 (principal); Q05.9 Spina bifida, unspecified; G89.29 Other chronic pain; F41.9 Anxiety disorder, unspecified; F17.290 Nicotine dependence, other tobacco product, uncomplicated; Z92.0 Personal history of contraception ==

== ENCOUNTER 2020-09-06 15:56 | Emergency (ER) | payer MEDICAID ==
[~2020-09-06] VITALS: Ht 144.7 cm; Wt 77.1 kg
[~2020-09-06 15:56] MED LIST changes: -EPIPEN 2-P0.3 MG/0.3 IJ; -MEDROL DOSEPAK4 MG PO; -PREDNISONE10 MG PO
[2020-09-06 16:09] VITALS: BP 119/62
[2020-09-06] MEDS ORDERED: MEDROL DOSEPAK4 MG PO (19:59)
== END 2020-09-06 20:46 | disposition home or self-care (01) ==
LOC: ED 15:56
DX: T78.40XA Allergy, unspecified, initial encounter (principal); Z88.8 Allergy status to other drugs, medicaments and biological substances; Z79.899 Other long term (current) drug therapy; Z98.890 Other specified postprocedural states; Z90.49 Acquired absence of other specified parts of digestive tract; F17.200 Nicotine dependence, unspecified, uncomplicated; X58.XXXA Exposure to other specified factors, initial encounter

== ENCOUNTER → 2020-09-06 | Outpatient (CLI) | payer MEDICAID | LOC: WOUNDCARE 00:51 | PROVIDERS: ATTEND Nurse Practitioner | DX: L89.323 Pressure ulcer of left buttock, stage 3 (principal); Q05.9 Spina bifida, unspecified; G89.29 Other chronic pain; F41.9 Anxiety disorder, unspecified; F17.290 Nicotine dependence, other tobacco product, uncomplicated; Z92.0 Personal history of contraception ==

== ENCOUNTER 2020-10-04 16:02 | Observation (INO) | payer MEDICAID ==
[~2020-10-04] VITALS: Wt 83.0 kg
[~2020-10-04 16:02] MED LIST changes: -EPIPEN 2-P0.3 MG/0.3 IJ; -PREDNISONE10 MG PO
[2020-10-04 16:13] VITALS: BP 117/67
[2020-10-04] MEDS ORDERED: EPIPEN 2-P0.3 MG/0.3 IJ ×2 (16:33)
[2020-10-04 16:39] VITALS: BP 121/67
[2020-10-04 16:59] LABS: HEMATOCRIT 43.7 % (42.0-52.0); MEAN CELL VOLUME 83.9 fl (80.0-94.0); MEAN CORPUSCULAR HGB 27.4 pg (27.0-31.0); MEAN CORPUSCULAR HGB CONC 32.7 g/dl (33.0-37.0); PLATELET COUNT AUTOMATED 467 10*3/uL (130-400); RED BLOOD COUNT 5.21 10*6/uL (4.50-5.90); RED CELL DISTRI WIDTH 14.2 % (0-14.5); WHITE BLOOD COUNT 17.5 10*3/uL (4.8-10.8)
[2020-10-04 17:10] LABS: ACT PARTIAL THROMBO TIME 28.7 SECONDS (20.0-32.1)
[2020-10-04 17:16] LABS: BUN 13 mg/dl (7-24); CHLORIDE 109 mmol/L (98-107); CREATININE 0.82 mg/dL (0.70-1.30); POTASSIUM 3.5 mmol/L (3.5-5.1); SODIUM 142 mmol/L (136-145); TROPONIN I < 0.015 ng/ml (<0.045)
[2020-10-04 17:29] LABS: ATYPICAL LYMPHS 1 % (0-0); PLATELET SUFFICIENCY HIGH (NORMAL); TOTAL CELLS COUNTED 100 #CELLS
[2020-10-04 18:49] VITALS: BP 121/67
[2020-10-04 20:41] VITALS: BP 111/61
[2020-10-04 21:53] VITALS: BP 111/61
[2020-10-04 22:45] VITALS: BP 114/73; BP 117/73
[2020-10-05 06:53] LABS: BASO % 0.2 % (0.0-1.0); HEMATOCRIT 39.8 % (42.0-52.0); LYMPH # 1.9 10*3/uL (1.3-4.4); LYMPH % 14.6 % (27.0-41.0); MEAN CELL VOLUME 86.3 fl (80.0-94.0); MEAN CORPUSCULAR HGB 27.8 pg (27.0-31.0); MEAN CORPUSCULAR HGB CONC 32.2 g/dl (33.0-37.0); MONO # 0.7 10*3/uL (0.1-1.0); MONO % 5.3 % (3.0-9.0); NEUT # 10.4 10*3/uL (2.3-7.9); NEUT % 79.4 % (47.0-73.0); PLATELET COUNT AUTOMATED 370 10*3/uL (130-400); RED BLOOD COUNT 4.61 10*6/uL (4.50-5.90); RED CELL DISTRI WIDTH 14.2 % (0-14.5); WHITE BLOOD COUNT 13.1 10*3/uL (4.8-10.8)
[2020-10-05 07:12] LABS: ALKALINE PHOSPHATASE 69 U/L (45-117); BUN 11 mg/dl (7-24); CHLORIDE 110 mmol/L (98-107); CREATININE 0.82 mg/dL (0.70-1.30); POTASSIUM 4.1 mmol/L (3.5-5.1); SGOT/AST 8 IU/L (3-35); SGPT/ALT 25 U/L (12-78); SODIUM 140 mmol/L (136-145); TOTAL PROTEIN 6.9 gm/dL (6.4-8.2)
[2020-10-05 08:00] VITALS: BP 129/74
[2020-10-05] MEDS ORDERED: EPIPEN 2-P0.3 MG/0.3 IJ (09:43)
[2020-10-05] MEDS ORDERED: PREDNISONE10 MG PO (09:43)
== END 2020-10-05 10:30 | disposition home or self-care (01) ==
LOC: ED 16:02 → EDHOLD 17:14 → 5E 21:40
PROVIDERS: Emergency Medicine; Internal Medicine; ADMIT Internal Medicine; ATTEND Internal Medicine
DX: T78.2XXA Anaphylactic shock, unspecified, initial encounter (principal); R21 Rash and other nonspecific skin eruption; E87.8 Other disorders of electrolyte and fluid balance, not elsewhere classified; E83.41 Hypermagnesemia; R00.0 Tachycardia, unspecified; R65.10 Systemic inflammatory response syndrome (SIRS) of non-infectious origin without acute organ dysfunction; D72.829 Elevated white blood cell count, unspecified; N31.9 Neuromuscular dysfunction of bladder, unspecified; K59.2 Neurogenic bowel, not elsewhere classified; R73.9 Hyperglycemia, unspecified; F17.210 Nicotine dependence, cigarettes, uncomplicated; Z71.6 Tobacco abuse counseling; Z79.899 Other long term (current) drug therapy

== ENCOUNTER → 2020-10-04 | Outpatient (CLI) | payer MEDICAID ==
[~2020-10-04] MED LIST changes: +EPIPEN 2-P0.3 MG/0.3 IJ; +MEDROL DOSEPAK4 MG PO; +PREDNISONE10 MG PO
== END ==
LOC: WOUNDCARE 02:17
PROVIDERS: ATTEND Nurse Practitioner
DX: L89.323 Pressure ulcer of left buttock, stage 3 (principal); Q05.9 Spina bifida, unspecified; G89.29 Other chronic pain; F41.9 Anxiety disorder, unspecified; F17.290 Nicotine dependence, other tobacco product, uncomplicated; Z92.0 Personal history of contraception

== ENCOUNTER → 2020-10-29 | Outpatient (CLI) | payer MEDICAID ==
[~2020-10-29] MED LIST changes: +EPIPEN 2-P0.3 MG/0.3 IJ; +PREDNISONE10 MG PO
== END ==
LOC: WOUNDCARE 02:55
PROVIDERS: ATTEND Nurse Practitioner
DX: L89.323 Pressure ulcer of left buttock, stage 3 (principal); Q05.9 Spina bifida, unspecified; G89.29 Other chronic pain; F41.9 Anxiety disorder, unspecified; F17.290 Nicotine dependence, other tobacco product, uncomplicated; Z92.0 Personal history of contraception

== ENCOUNTER → 2020-11-05 | Outpatient (CLI) | payer MEDICAID | LOC: WOUNDCARE 01:06 | PROVIDERS: ATTEND Nurse Practitioner | DX: L89.323 Pressure ulcer of left buttock, stage 3 (principal); Q05.9 Spina bifida, unspecified; G89.29 Other chronic pain; F41.9 Anxiety disorder, unspecified; F17.290 Nicotine dependence, other tobacco product, uncomplicated; Z92.0 Personal history of contraception ==

== ENCOUNTER → 2020-11-19 | Outpatient (CLI) | payer MEDICAID | LOC: WOUNDCARE 01:15 | PROVIDERS: ATTEND Nurse Practitioner | DX: L89.323 Pressure ulcer of left buttock, stage 3 (principal); Q05.9 Spina bifida, unspecified; G89.29 Other chronic pain; Z72.0 Tobacco use; Z71.6 Tobacco abuse counseling ==

== ENCOUNTER → 2020-12-05 | Outpatient (CLI) | payer MEDICAID | LOC: WOUNDCARE 01:54 | PROVIDERS: ATTEND Nurse Practitioner | DX: L89.323 Pressure ulcer of left buttock, stage 3 (principal); Q05.9 Spina bifida, unspecified; G89.29 Other chronic pain; F17.290 Nicotine dependence, other tobacco product, uncomplicated; Z71.6 Tobacco abuse counseling ==

== ENCOUNTER → 2020-12-10 | Outpatient (CLI) | payer MEDICAID | LOC: RESCLI 01:30 → WOUNDCARE 01:30 → RESCLI 14:17 | PROVIDERS: ATTEND Nurse Practitioner | DX: L89.323 Pressure ulcer of left buttock, stage 3 (principal); Q05.9 Spina bifida, unspecified; G89.29 Other chronic pain; F17.290 Nicotine dependence, other tobacco product, uncomplicated; Z71.6 Tobacco abuse counseling ==

== ENCOUNTER → 2020-12-17 | Outpatient (CLI) | payer MEDICAID | LOC: WOUNDCARE 00:55 | PROVIDERS: ATTEND Nurse Practitioner | DX: L89.323 Pressure ulcer of left buttock, stage 3 (principal); Q05.9 Spina bifida, unspecified; G89.29 Other chronic pain; F17.290 Nicotine dependence, other tobacco product, uncomplicated; Z71.6 Tobacco abuse counseling ==

== ENCOUNTER → 2020-12-26 | Outpatient (CLI) | payer MEDICAID | LOC: WOUNDCARE 02:26 | PROVIDERS: ATTEND Nurse Practitioner | DX: L89.323 Pressure ulcer of left buttock, stage 3 (principal); Q05.9 Spina bifida, unspecified; G89.29 Other chronic pain; F17.290 Nicotine dependence, other tobacco product, uncomplicated; Z71.6 Tobacco abuse counseling ==

== ENCOUNTER → 2020-12-31 | Outpatient (CLI) | payer MEDICAID | LOC: WOUNDCARE 02:01 | PROVIDERS: ATTEND Nurse Practitioner | DX: L89.323 Pressure ulcer of left buttock, stage 3 (principal); Q05.9 Spina bifida, unspecified; G89.29 Other chronic pain; F17.290 Nicotine dependence, other tobacco product, uncomplicated; Z71.6 Tobacco abuse counseling ==

== ENCOUNTER → 2021-01-07 | Outpatient (CLI) | payer MEDICAID | LOC: WOUNDCARE 05:04 | PROVIDERS: ATTEND Nurse Practitioner | DX: L89.323 Pressure ulcer of left buttock, stage 3 (principal); Q05.9 Spina bifida, unspecified; G89.29 Other chronic pain; F17.290 Nicotine dependence, other tobacco product, uncomplicated; Z71.6 Tobacco abuse counseling ==

== ENCOUNTER → 2021-01-14 | Outpatient (CLI) | payer MEDICAID | LOC: WOUNDCARE 01:16 | PROVIDERS: ATTEND Nurse Practitioner | DX: L89.323 Pressure ulcer of left buttock, stage 3 (principal); Q05.9 Spina bifida, unspecified; G89.29 Other chronic pain; F17.290 Nicotine dependence, other tobacco product, uncomplicated; Z71.6 Tobacco abuse counseling ==

== ENCOUNTER → 2021-01-21 | Outpatient (CLI) | payer MEDICAID | LOC: WOUNDCARE 05:43 | PROVIDERS: ATTEND Nurse Practitioner | DX: L89.323 Pressure ulcer of left buttock, stage 3 (principal); Q05.9 Spina bifida, unspecified; G89.29 Other chronic pain; F17.290 Nicotine dependence, other tobacco product, uncomplicated; Z71.6 Tobacco abuse counseling ==

== ENCOUNTER → 2021-02-04 | Outpatient (CLI) | payer MEDICAID | LOC: WOUNDCARE 01:20 | PROVIDERS: ATTEND Nurse Practitioner | DX: L89.323 Pressure ulcer of left buttock, stage 3 (principal); Q05.9 Spina bifida, unspecified; G89.29 Other chronic pain; F17.290 Nicotine dependence, other tobacco product, uncomplicated; Z71.6 Tobacco abuse counseling ==

== ENCOUNTER → 2021-02-11 | Outpatient (CLI) | payer MEDICAID | LOC: WOUNDCARE 01:18 | PROVIDERS: ATTEND Nurse Practitioner | DX: L89.323 Pressure ulcer of left buttock, stage 3 (principal); Q05.9 Spina bifida, unspecified; G89.29 Other chronic pain; F17.290 Nicotine dependence, other tobacco product, uncomplicated; Z71.6 Tobacco abuse counseling; Z87.442 Personal history of urinary calculi ==

== ENCOUNTER → 2021-02-20 | Outpatient (CLI) | payer MEDICAID | LOC: WOUNDCARE 02-18 01:17 | PROVIDERS: ATTEND Nurse Practitioner Primary Care | DX: L89.323 Pressure ulcer of left buttock, stage 3 (principal); L98.412 Non-pressure chronic ulcer of buttock with fat layer exposed; Q05.9 Spina bifida, unspecified; G89.29 Other chronic pain; F17.290 Nicotine dependence, other tobacco product, uncomplicated; Z71.6 Tobacco abuse counseling; Z87.442 Personal history of urinary calculi ==

== ENCOUNTER → 2021-02-25 | Outpatient (CLI) | payer MEDICAID | LOC: WOUNDCARE 01:37 | PROVIDERS: ATTEND Nurse Practitioner | DX: L89.323 Pressure ulcer of left buttock, stage 3 (principal); L98.412 Non-pressure chronic ulcer of buttock with fat layer exposed; Q05.9 Spina bifida, unspecified; G89.29 Other chronic pain; F17.290 Nicotine dependence, other tobacco product, uncomplicated; Z71.6 Tobacco abuse counseling; Z87.442 Personal history of urinary calculi ==

== ENCOUNTER → 2021-03-18 | Outpatient (CLI) | payer MEDICAID | LOC: WOUNDCARE 01:14 | PROVIDERS: ATTEND Nurse Practitioner | DX: L89.323 Pressure ulcer of left buttock, stage 3 (principal); L98.412 Non-pressure chronic ulcer of buttock with fat layer exposed; Q05.9 Spina bifida, unspecified; G89.29 Other chronic pain; F17.290 Nicotine dependence, other tobacco product, uncomplicated; Z71.6 Tobacco abuse counseling; Z87.442 Personal history of urinary calculi ==

== ENCOUNTER → 2021-03-25 | Outpatient (CLI) | payer MEDICAID | LOC: WOUNDCARE 01:50 | PROVIDERS: ATTEND Nurse Practitioner | DX: L89.323 Pressure ulcer of left buttock, stage 3 (principal); L98.412 Non-pressure chronic ulcer of buttock with fat layer exposed; Q05.9 Spina bifida, unspecified; G89.29 Other chronic pain; F17.290 Nicotine dependence, other tobacco product, uncomplicated; Z71.6 Tobacco abuse counseling; Z87.442 Personal history of urinary calculi ==

== ENCOUNTER → 2021-04-15 | Outpatient (CLI) | payer MEDICAID | LOC: WOUNDCARE 00:43 | PROVIDERS: ATTEND Nurse Practitioner | DX: L89.323 Pressure ulcer of left buttock, stage 3 (principal); L98.412 Non-pressure chronic ulcer of buttock with fat layer exposed; Q05.9 Spina bifida, unspecified; G89.29 Other chronic pain; F17.290 Nicotine dependence, other tobacco product, uncomplicated; Z71.6 Tobacco abuse counseling; Z87.442 Personal history of urinary calculi ==

== ENCOUNTER → 2021-07-15 | Outpatient (CLI) | payer MEDICAID | LOC: WOUNDCARE 01:10 | PROVIDERS: ATTEND Nurse Practitioner Family | DX: L89.323 Pressure ulcer of left buttock, stage 3 (principal); L98.412 Non-pressure chronic ulcer of buttock with fat layer exposed; Q05.9 Spina bifida, unspecified; G89.29 Other chronic pain; F17.290 Nicotine dependence, other tobacco product, uncomplicated; Z98.890 Other specified postprocedural states; Z71.6 Tobacco abuse counseling ==

== ENCOUNTER → 2021-10-07 | Outpatient (CLI) | payer MEDICAID | LOC: WOUNDCARE 01:27 | PROVIDERS: ATTEND Nurse Practitioner Family | DX: L89.323 Pressure ulcer of left buttock, stage 3 (principal); Q05.9 Spina bifida, unspecified; G89.29 Other chronic pain; F17.290 Nicotine dependence, other tobacco product, uncomplicated; Z98.890 Other specified postprocedural states; Z71.6 Tobacco abuse counseling ==

== ENCOUNTER → 2021-10-14 | Outpatient (CLI) | payer MEDICAID | LOC: WOUNDCARE 00:14 | PROVIDERS: ATTEND Nurse Practitioner Family | DX: L89.323 Pressure ulcer of left buttock, stage 3 (principal); Q05.9 Spina bifida, unspecified; G89.29 Other chronic pain; F17.290 Nicotine dependence, other tobacco product, uncomplicated; Z71.6 Tobacco abuse counseling ==

== ENCOUNTER → 2021-12-18 | Outpatient (CLI) | payer MEDICAID | END | disposition home or self-care (01) | LOC: WOUNDCARE 02:05 | PROVIDERS: ATTEND Nurse Practitioner Family | DX: L89.323 Pressure ulcer of left buttock, stage 3 (principal); Q05.9 Spina bifida, unspecified; G89.29 Other chronic pain; F17.290 Nicotine dependence, other tobacco product, uncomplicated; Z71.6 Tobacco abuse counseling; Z79.82 Long term (current) use of aspirin ==

== ENCOUNTER → 2022-01-22 | Outpatient (CLI) | payer MEDICAID | END | disposition home or self-care (01) | LOC: WOUNDCARE 02:36 | PROVIDERS: ATTEND Nurse Practitioner Family | DX: L89.323 Pressure ulcer of left buttock, stage 3 (principal); Q05.9 Spina bifida, unspecified; G89.29 Other chronic pain; F17.290 Nicotine dependence, other tobacco product, uncomplicated; Z71.6 Tobacco abuse counseling ==

== ENCOUNTER → 2022-02-05 | Outpatient (CLI) | payer MEDICAID | END | disposition home or self-care (01) | LOC: WOUNDCARE 00:42 | PROVIDERS: ATTEND Nurse Practitioner Family | DX: L89.323 Pressure ulcer of left buttock, stage 3 (principal); Q05.9 Spina bifida, unspecified; G89.29 Other chronic pain; F17.290 Nicotine dependence, other tobacco product, uncomplicated; Z71.6 Tobacco abuse counseling ==

== ENCOUNTER → 2022-02-12 | Outpatient (CLI) | payer MEDICAID | END | disposition home or self-care (01) | LOC: WOUNDCARE 02:53 | PROVIDERS: ATTEND Nurse Practitioner Family | DX: L89.323 Pressure ulcer of left buttock, stage 3 (principal); Q05.9 Spina bifida, unspecified; G89.29 Other chronic pain; F17.290 Nicotine dependence, other tobacco product, uncomplicated; Z71.6 Tobacco abuse counseling ==

== ENCOUNTER → 2022-03-12 | Outpatient (CLI) | payer MEDICAID | END | disposition home or self-care (01) | LOC: WOUNDCARE 01:00 | PROVIDERS: ATTEND Nurse Practitioner Family | DX: L89.323 Pressure ulcer of left buttock, stage 3 (principal); Q05.9 Spina bifida, unspecified; G89.29 Other chronic pain; F17.290 Nicotine dependence, other tobacco product, uncomplicated; Z71.6 Tobacco abuse counseling ==

== ENCOUNTER 2022-11-10 12:49 | Emergency (ER) | payer MEDICAID ==
[~2022-11-10] VITALS: Ht 142.2 cm; Wt 71.2 kg
[2022-11-10 13:32] LABS: HEMATOCRIT 29.3 % (42.0-52.0); MEAN CORPUSCULAR HGB 25.5 pg (27.0-31.0); MEAN CORPUSCULAR HGB CONC 30.7 g/dl (33.0-37.0); MEAN PLATELET VOLUME 9.5 fl (9.6-12.3); NUCLEATED RED BLOOD CELL 0.1 10*3/uL (0.0-0.0); NUCLEATED RED BLOOD CELL 0.2 % (0.0-0.0); PLATELET COUNT AUTOMATED 609 10*3/uL (130-400); RED BLOOD COUNT 3.53 10*6/uL (4.50-5.90); RED CELL DISTRI WIDTH 17.2 % (0-14.5); WHITE BLOOD COUNT 24.8 10*3/uL (4.8-10.8)
[2022-11-10 13:34] LABS: MANUAL DIFF REFLEX YES
[2022-11-10 13:51] LABS: ALKALINE PHOSPHATASE 124 U/L (46-116); BUN 18 mg/dl (9-23); CHLORIDE 95 mmol/L (98-107); POTASSIUM 3.6 mmol/L (3.4-5.1); SGPT/ALT 19 U/L (10-49); TOTAL PROTEIN 7.6 gm/dL (6.0-8.0)
[2022-11-10 14:02] LABS: TOTAL CELLS COUNTED 100 #CELLS
[2022-11-10 14:03] LABS: BURR CELLS FEW; PLATELET SUFFICIENCY HIGH (NORMAL); POLYCHROMASIA SLIGHT; ROULEAUX SLIGHT; TOXIC GRANULATION SLIGHT
[2022-11-10 14:49] LABS: BILIRUBIN Negative (Negative); BLOOD 2+ (Negative); CLARITY Turbid (Clear); COLOR Dark Yellow (Yellow); GLUCOSE Negative (Negative); KETONE 1+ (Negative); LEUKO ESTERASE 3+ (Negative); NITRITE Negative (Negative); PH 7.5 (4.5-8.0)
[2022-11-10 15:23] LABS: BACTERIA 3+; WBC TNTC wbc/hpf (0-5)
[2022-11-10 15:24] LABS: EPITHELIAL CELLS 0-2
[2022-11-10 16:00] VITALS: BP 102/66
== END 2022-11-10 18:10 | disposition short-term general hospital (02) ==
LOC: ED 12:49
PROVIDERS: Nurse Practitioner Family
DX: K68.19 Other retroperitoneal abscess (principal); E87.1 Hypo-osmolality and hyponatremia; N20.0 Calculus of kidney; N39.0 Urinary tract infection, site not specified; F17.200 Nicotine dependence, unspecified, uncomplicated; Z91.040 Latex allergy status; Z88.1 Allergy status to other antibiotic agents; Z98.890 Other specified postprocedural states; Z90.89 Acquired absence of other organs

== ENCOUNTER → 2024-10-03 | Outpatient (CLI) | payer MEDICAID | END | disposition home or self-care (01) | LOC: WOUNDCARE 01:46 | PROVIDERS: ATTEND Nurse Practitioner Family | DX: N49.3 Fournier gangrene (principal); L98.492 Non-pressure chronic ulcer of skin of other sites with fat layer exposed; Q05.9 Spina bifida, unspecified; G89.29 Other chronic pain; F17.290 Nicotine dependence, other tobacco product, uncomplicated; Z87.442 Personal history of urinary calculi; Z98.890 Other specified postprocedural states; Z79.899 Other long term (current) drug therapy ==

== ENCOUNTER → 2024-10-05 | Outpatient (CLI) | payer MEDICAID | END | disposition home or self-care (01) | LOC: CT 03:29 | PROVIDERS: ATTEND Internal Medicine | DX: R42 Dizziness and giddiness (principal) ==